=== PATIENT | female | born 1980 | race Caucasian/White ===

== ENCOUNTER 2017-09-28 00:20 | Emergency (ER) | payer OTHER ==
[~2017-09-28] VITALS: Ht 154.9 cm; Wt 80.3 kg
[2017-09-28 00:26] VITALS: BP 131/83; Ht 154.9 cm; Wt 80.3 kg
== END 2017-09-28 03:11 | disposition left against medical advice (07) ==
LOC: ED 00:20
DX: Z53.21 Procedure and treatment not carried out due to patient leaving prior to being seen by health care provider (principal)

== ENCOUNTER 2017-11-23 21:13 | Emergency (ER) | payer OTHER ==
[~2017-11-23] VITALS: Ht 154.9 cm; Wt 82.1 kg
[2017-11-23 21:17] VITALS: Ht 154.9 cm; Wt 82.1 kg
[2017-11-23 22:16] VITALS: BP 119/64
== END 2017-11-23 22:16 | disposition home or self-care (01) ==
LOC: ED 21:13
DX: N64.4 Mastodynia (principal)